=== PATIENT | female | born 1995 | race Caucasian/White ===

== ENCOUNTER 2018-01-15 19:40 | Emergency (ER) | payer OTHER ==
[2018-01-15] MEDS: HYDROCODONE/APAP (5/325) TAB PO (20:11)
[2018-01-15] MEDS: KETOROLAC 30 MG INJ IM (22:42)
== END 2018-01-15 22:55 | disposition home or self-care (01) ==
LOC: FTE 19:40
DX: S43.402A Unspecified sprain of left shoulder joint, initial encounter (principal); W19.XXXA Unspecified fall, initial encounter; Y92.9 Unspecified place or not applicable
CPT/HCPCS: 73030; 84703; 96372; 99284-25